=== PATIENT | male | born 1955 | race African-American/Black ===

== ENCOUNTER 2023-08-30 10:00 | Day surgery (SDC) | payer MEDICARE, OTHER ==
[2023-08-30] VITALS (11 sets, daily range): BP systolic 92–143; BP diastolic 42–104; PULSE 46–54; TEMP 97.4
[~2023-08-30] VITALS: Ht 160.1 cm; Wt 72.3 kg
[~2023-08-30 10:00] MED LIST: CARBIDOPA & LEV1 TA1 PO; CELEXA40 MG PO; EPI-PEN1 MG/ML MR; HCTZ 25MG TAB25 MG PO; IBU800 M1 PO; INDERAL80 MG PO; KLOR-CON20 MEQ PEG; MEVACOR40 MG PO; PREDNISONE5 MG/5 M1 PEG; SINEMET 25/101 UDTAB PO
[2023-08-30] MEDS ORDERED: EUTHYROX100 MCG PO (10:44)
[2023-08-30] MEDS ORDERED: ZOLOFT 100MG100 MG PO (10:45)
[2023-08-30] MEDS ORDERED: PRILOSEC 20MG20 MG PO (10:46)
[2023-08-30] MEDS ORDERED: CRESTOR40 MG PO (10:47)
[2023-08-30] MEDS ORDERED: ARICEPT ODT10 MG PO (10:48)
[2023-08-30] MEDS ORDERED: REMERON45 MG PO (10:48)
[2023-08-30] MEDS ORDERED: ENSURE PLUS 23237 ML PO (10:50)
[2023-08-30] MEDS ORDERED: ASPIRIN 81M81 MG/TA2 PO (10:50)
[2023-08-30] MEDS ORDERED: AMBIEN 5MG TABLE5 MG PO (10:51)
[2023-08-30 10:55] LABS: HEMOGLOBIN 11.1 g/dl (13.5-18.0); MEAN CELL VOLUME 81 fl (80.0-100.0); MEAN CORPUSCULAR HEMOGLOBIN 26 pg (27-31); MEAN CORPUSCULAR HGB CONC 32 g/dl (33.0-37.0); MEAN PLATELET VOLUME 10.1 fl (7.4-10.4); PLATELET COUNT 229 K/mm3 (130-400); RED BLOOD COUNT 4.29 M/mm3 (4.20-5.60); REDCELL DISTRIBUTION WIDTH-CV 14.9 % (11.5-14.5)
[2023-08-30 10:57] LABS: HEMATOCRIT 34.7 % (42.0-52.0)
[2023-08-30 11:02] LABS: PROTHROMBIN TIME 11.3 SECONDS (9.7-12.8)
[2023-08-30 11:05] LABS: PARTIAL THROMBOPLASTIN TIME 33.8 SECONDS (26.0-37.0)
[2023-08-30 11:08] LABS: CALCIUM 9.2 mg/dL (8.4-10.2); CREATININE, serum 1.22 mg/dL (0.72-1.25); POTASSIUM 3.9 mmol/L (3.5-4.5)
--- NOTE | 2023-08-30 12:19 | NUR ---
SEE MERGE DOCUMENTATION FOR PROCEDURE INFORMATION INCLUDING VITAL SIGNS.
--- NOTE | 2023-08-30 15:52 | NUR ---
Pt ambulated to [facility] scheduled for a [facility], accompanied by son. IV started to the L AC, labs drawn. Meds and HX reviewed with the pt. Consent form for the procedure signed. Pt did not have any questions about the procedure at this time. Post procedure pt came back to 12. Pt was offered something to eat and drink, pt accepted the offer. Given some juice and a meal was ordered. Pt was bedrest for 2 hrs. At the end of post-op hr 2 air was taken out of the right radial band 2 mls every 10-15 mins. Right radial wrist clean, dry, and intact during the recovery. Pt was given discharge education and information. No questions or concerns at this time. Pt exited the unit by wheelchair to [facility] car.
== END 2023-08-30 15:58 | disposition home or self-care (01) ==
LOC: COL.CAR 10:00
PROVIDERS: Internal Medicine Cardiovascular Disease
DX: R07.89 Other chest pain (principal); R94.39 Abnormal result of other cardiovascular function study
CPT/HCPCS: J1644; J2250; J3010